=== PATIENT | female | born 1995 | race Caucasian/White ===

== ENCOUNTER 2023-11-03 16:06 | Inpatient (IN) | payer BC ==
[~2023-11-03] VITALS: Ht 147.3 cm; Wt 65.3 kg
[2023-11-03] MEDS ORDERED: LACTATED RINGERS 500 ML IV SCH (16:45)
[2023-11-03] MEDS ORDERED: METHYLERGONOVINE 0.2 MG/ML AMP IM PRN (16:45)
[2023-11-03] MEDS ORDERED: CARBOPROST 250 MCG/ML AMP IM PRN (16:45)
[2023-11-03] MEDS ORDERED: OXYTOCIN 10 UNITS/ML VIAL IM SCH (16:45)
[2023-11-03 16:55] VITALS: BP 109/55; PULSE 92; TEMP 98.5
[2023-11-03 17:21] LABS: BASOPHILS % (AUTO) 0.8 % (0.0-2.0); EOSINOPHILS % (AUTO) 0.6 % (0.0-4.0); HEMATOCRIT 35.1 % (36-48); LYMPHOCYTES # (AUTO) 1.3 K/uL (2.5-16.5); LYMPHOCYTES % (AUTO) 20.8 % (20.5-51.1); MEAN CORPUSCULAR HEMOGLOBIN 28 pg (27-31); MEAN CORPUSCULAR HGB CONC 34 g/dL (33-37); MEAN CORPUSCULAR VOLUME 82.3 fL (80-94); MONOCYTES # (AUTO) 0.4 K/uL (0.8-1.0); MONOCYTES % (AUTO) 5.5 % (1.7-9.3); NEUTROPHILS # (AUTO) 4.7 K/uL (1.8-7.7); NEUTROPHILS % (AUTO) 72.3 % (42.2-75.2); PLATELET COUNT (AUTO) 245 K/uL (140-450); RED BLOOD CELL COUNT(AUTO) 4.27 MIL/uL (4.20-5.40); RED CELL DISTRIBUTION WIDTH 14.6 % (11.6-13.7); WHITE BLOOD COUNT (AUTO) 6.5 K/uL (4.8-10.8)
[2023-11-03 17:41] LABS: ALBUMIN 2.5 g/dL (3.4-5.0); ANION GAP 13.5 (8-16); CALCIUM 8.6 mg/dL (8.5-10.1); CARBON DIOXIDE 23.1 mmol/L (21-32); CREATININE 0.6 mg/dL (0.6-1.3); POTASSIUM 3.6 mmol/L (3.5-5.1); TOTAL BILIRUBIN 0.5 mg/dL (0.0-1.0); TOTAL PROTEIN, SERUM 6.6 g/dL (6.4-8.2)
[2023-11-03 17:49] LABS: INR 0.91 (0.8-1.2); PARTIAL THROMBOPLASTIN TIME 24.9 secs (22-35.6); PROTHROMBIN TIME 9.6 secs (10.8-13.4)
[2023-11-03] MEDS: MISOPROSTOL 25 MCG TAB ONE (17:58)
[2023-11-03 18:42] LABS: APPEARANCE,URINE CLEAR (CLEAR); BILIRUBIN,URINE NEGATIVE (NEGATIVE); BLOOD, URINE NEGATIVE (NEGATIVE); COLOR,URINE YELLOW (YELLOW); LEUKOCYTE ESTERASE ,URINE TRACE (NEGATIVE); NITRITE, URINE NEGATIVE (NEGATIVE); PROTEIN,URINE TRACE (NEGATIVE); UGLUCOSE NEGATIVE (NEGATIVE)
[2023-11-03 18:55] LABS: BACTERIA,URINE 10-30 (MOD) /HPF (None Seen); RBC,URINE 0-5 /HPF (0-5); SQUAMOUS EPITHELIAL CELL,UR 4-10 (MOD) /LPF (0-3 (FEW)); WBC,URINE 0-5 /HPF (0-5)
[2023-11-03] MEDS: LACTATED RINGERS 1,000 ML IV SCH (19:25)
[2023-11-04] MEDS: MISOPROSTOL 25 MCG TAB VG PRN (00:10)
[2023-11-04] MEDS: ONDANSETRON 4 MG/2 ML VIAL IVP PRN (11:11)
[2023-11-04] MEDS: MORPHINE SULFATE 10 MG/ML VIAL IVP PRN (11:15)
[2023-11-04] MEDS ORDERED: ROPIVACAINE 0.2%/NS PREMIX 200 ML EPI ONE (11:19)
[2023-11-04] MEDS ORDERED: OXYTOCIN/0.9 % SODIUM CHLORIDE 500 ML IV SCH (14:15)
[2023-11-04] MEDS: OXYTOCIN/0.9 % SODIUM CHLORIDE 500 ML IV SCH (18:05)
[2023-11-05] MEDS ORDERED: ROPIVACAINE 0.2%/NS PREMIX 200 ML EPI ONE ×2 (01:38→15:53)
[2023-11-05 04:08] VITALS: BP 134/80; PULSE 105; RESP 20; O2SAT 100
[2023-11-05] MEDS ORDERED: AMPICILLIN 2,000 MG VIAL ONE (18:27)
[2023-11-05] MEDS: AMPICILLIN 2,000 MG in NACL 0.9% 100 ML IV SCH (18:34)
[2023-11-05] MEDS ORDERED: CITRIC ACID/SODIUM CITRATE 30 ML UDC PO SCH (19:05)
[2023-11-05] MEDS ORDERED: ceFAZolin 2,000 MG VIAL ONE (19:25)
[2023-11-05] MEDS: CITRIC ACID/SODIUM CITRATE 30 ML UDC ONE (19:27)
[2023-11-05] MEDS ORDERED: MORPHINE PRES FREE 5 MG/10 ML AMP IV ONE (19:39)
[2023-11-05] MEDS ORDERED: MIDAZOLAM 2 MG/2 ML VIAL ONE (19:40)
[2023-11-05] MEDS ORDERED: MORPHINE PRES FREE 10 MG/10 ML AMP IV ONE (19:40)
[2023-11-05] MEDS ORDERED: KETAMINE 500 MG/5 ML VIAL ONE (19:41)
[2023-11-05] MEDS ORDERED: LIDOCAINE/EPI MPF 2%1:200000 10 ML VIAL INJ ONE (19:44)
[2023-11-05] MEDS ORDERED: AMPICILLIN 1,000 MG in NACL 0.9% 50 ML IV SCH (20:00)
[2023-11-05] MEDS ORDERED: METHYLERGONOVINE 0.2 MG/ML AMP ONE (20:09)
[2023-11-05] MEDS ORDERED: MEASLES, MUMPS, AND RUBELLA 1 VIAL SQVAC ONE (20:40)
[2023-11-05] MEDS ORDERED: METHYLERGONOVINE 0.2 MG/ML AMP IM PRN (20:40)
[2023-11-05] MEDS ORDERED: ACETAMINOPHEN 100 ML IV ONE (20:47)
[2023-11-05] MEDS ORDERED: ACETAMINOPHEN 100 ML IV PRN (20:50)
[2023-11-05] MEDS ORDERED: TRANEXAMIC ACID 1,000 MG/10 ML VIAL ONE (21:42)
[2023-11-05] MEDS ORDERED: OXYTOCIN/0.9 % SODIUM CHLORIDE 500 ML IV SCH (22:40)
[2023-11-06] MEDS: OXYTOCIN/0.9 % SODIUM CHLORIDE 500 ML IV SCH (03:56)
[2023-11-06 07:50] LABS: BASOPHILS # (AUTO) 0.1 K/uL (0.00-0.22); BASOPHILS % (AUTO) 0.3 % (0.0-2.0); EOSINOPHILS # (AUTO) 0.1 K/uL (0-0.4); EOSINOPHILS % (AUTO) 0.5 % (0.0-4.0); HEMATOCRIT 32.9 % (36-48); HEMOGLOBIN 10.7 g/dL (12.0-16.0); LYMPHOCYTES # (AUTO) 1.4 K/uL (2.5-16.5); LYMPHOCYTES % (AUTO) 9.2 % (20.5-51.1); MEAN CORPUSCULAR HEMOGLOBIN 28 pg (27-31); MEAN CORPUSCULAR HGB CONC 33 g/dL (33-37); MEAN CORPUSCULAR VOLUME 84.1 fL (80-94); MONOCYTES # (AUTO) 0.8 K/uL (0.8-1.0); MONOCYTES % (AUTO) 5.2 % (1.7-9.3); NEUTROPHILS # (AUTO) 12.8 K/uL (1.8-7.7); NEUTROPHILS % (AUTO) 84.8 % (42.2-75.2); PLATELET COUNT (AUTO) 198 K/uL (140-450); RED BLOOD CELL COUNT(AUTO) 3.92 MIL/uL (4.20-5.40); RED CELL DISTRIBUTION WIDTH 15.4 % (11.6-13.7); WHITE BLOOD COUNT (AUTO) 15.2 K/uL (4.8-10.8)
[2023-11-06] MEDS: SIMETHICONE 80 MG TAB.CHEW PO PRN (13:31)
[2023-11-06] MEDS: oxyCODONE/APAP 5/325 MG 1 TAB TAB PO PRN ×2 (13:40→21:06)
[2023-11-07] MEDS ORDERED: CAMERA MC ONE (04:41)
[2023-11-07] MEDS: bisacodyL 10 MG SUPP RC SCH (09:00)
[2023-11-07 10:04] LABS: BASOPHILS % (AUTO) 0.2 % (0.0-2.0); EOSINOPHILS # (AUTO) 0.2 K/uL (0-0.4); EOSINOPHILS % (AUTO) 1.3 % (0.0-4.0); HEMATOCRIT 28.5 % (36-48); HEMOGLOBIN 9.6 g/dL (12.0-16.0); LYMPHOCYTES # (AUTO) 1.2 K/uL (2.5-16.5); LYMPHOCYTES % (AUTO) 9.3 % (20.5-51.1); MEAN CORPUSCULAR HEMOGLOBIN 28 pg (27-31); MEAN CORPUSCULAR HGB CONC 34 g/dL (33-37); MEAN CORPUSCULAR VOLUME 82.5 fL (80-94); MONOCYTES # (AUTO) 0.5 K/uL (0.8-1.0); MONOCYTES % (AUTO) 3.8 % (1.7-9.3); NEUTROPHILS % (AUTO) 85.4 % (42.2-75.2); PLATELET COUNT (AUTO) 228 K/uL (140-450); RED BLOOD CELL COUNT(AUTO) 3.45 MIL/uL (4.20-5.40); WHITE BLOOD COUNT (AUTO) 12.9 K/uL (4.8-10.8)
[2023-11-07 10:24] LABS: ALBUMIN 1.8 g/dL (3.4-5.0); ANION GAP 10.1 (8-16); CALCIUM 7.8 mg/dL (8.5-10.1); CARBON DIOXIDE 26.7 mmol/L (21-32); CREATININE 0.8 mg/dL (0.6-1.3); TOTAL BILIRUBIN 0.6 mg/dL (0.0-1.0); TOTAL PROTEIN, SERUM 5.5 g/dL (6.4-8.2)
[2023-11-07 10:26] LABS: POTASSIUM 2.8 mmol/L (3.5-5.1)
[2023-11-07] MEDS ORDERED: POTASSIUM CHLORIDE 10 MEQ TABER PO SCH (10:29)
[2023-11-08] MEDS ORDERED: CAMERA MC ONE ×2 (02:37→19:52)
[2023-11-08 12:23] LABS: BASOPHILS % (AUTO) 0.3 % (0.0-2.0); EOSINOPHILS # (AUTO) 0.2 K/uL (0-0.4); EOSINOPHILS % (AUTO) 3.1 % (0.0-4.0); HEMATOCRIT 27.2 % (36-48); HEMOGLOBIN 9.2 g/dL (12.0-16.0); LYMPHOCYTES # (AUTO) 1.3 K/uL (2.5-16.5); LYMPHOCYTES % (AUTO) 16.7 % (20.5-51.1); MEAN CORPUSCULAR HEMOGLOBIN 28 pg (27-31); MEAN CORPUSCULAR HGB CONC 34 g/dL (33-37); MEAN CORPUSCULAR VOLUME 83.3 fL (80-94); MONOCYTES # (AUTO) 0.4 K/uL (0.8-1.0); MONOCYTES % (AUTO) 5.6 % (1.7-9.3); NEUTROPHILS # (AUTO) 5.7 K/uL (1.8-7.7); NEUTROPHILS % (AUTO) 74.3 % (42.2-75.2); PLATELET COUNT (AUTO) 257 K/uL (140-450); RED BLOOD CELL COUNT(AUTO) 3.27 MIL/uL (4.20-5.40); WHITE BLOOD COUNT (AUTO) 7.7 K/uL (4.8-10.8)
[2023-11-08 12:56] LABS: ALBUMIN 1.8 g/dL (3.4-5.0); ANION GAP 12.1 (8-16); CALCIUM 7.9 mg/dL (8.5-10.1); CARBON DIOXIDE 26.8 mmol/L (21-32); CREATININE 0.6 mg/dL (0.6-1.3); POTASSIUM 3.9 mmol/L (3.5-5.1); TOTAL BILIRUBIN 0.2 mg/dL (0.0-1.0); TOTAL PROTEIN, SERUM 5.6 g/dL (6.4-8.2)
[2023-11-08] MEDS: bisacodyL 5 MG TABEC PO SCH (14:07)
[2023-11-08] MEDS: POLYETHYLENE GLYCOL 17 GM/PKT PO SCH (18:06)
[2023-11-08] MEDS ORDERED: bisacodyL 10 MG SUPP RC PRN (21:00)
[2023-11-08] MEDS: IBUPROFEN 800 MG TAB PO PRN (21:59)
[2023-11-09] MEDS: bisacodyL 5 MG TABEC PO SCH (08:28)
[2023-11-09] MEDS: POLYETHYLENE GLYCOL 17 GM/PKT PO SCH (08:29)
== END 2023-11-09 17:00 | disposition home or self-care (01) | DRG 788 ==
LOC: MLD 16:06 → MFCC 11-05 21:27
PROVIDERS: ADMIT Obstetrics & Gynecology; ATTEND Obstetrics & Gynecology
PROC: 10D00Z1 Extraction of Products of Conception, Low, Open Approach (ICD-10-PCS; principal; 2023-11-03)
DX: O41.03X0 Oligohydramnios, third trimester, not applicable or unspecified (principal); Z37.0 Single live birth; O25.2 Malnutrition in childbirth; O62.0 Primary inadequate contractions; Z3A.39 39 weeks gestation of pregnancy; D64.89 Other specified anemias; O99.284 Endocrine, nutritional and metabolic diseases complicating childbirth; E87.6 Hypokalemia; D72.829 Elevated white blood cell count, unspecified; O90.81 Anemia of the puerperium
CPT/HCPCS: 36415; 51702; 59200; 76815; 80053; 81001; 85025; 85610; 85730; 86592; 86762; 86886; 86900; 86901; 87086; 87340; J0290; J2001; J2210; J2250; J2270; J2405; J2590; J2795; J3490; J7030; Q0092